=== PATIENT | female | born 1970 | race Caucasian/White ===

== ENCOUNTER 2017-02-17 14:29 | Emergency (ER) | payer OTHER ==
[2017-02-17] MEDS ORDERED: ACETAMINOPHEN WITH CODEINE #3 TABLET PO ONE ×2 (14:47→21:36)
--- NOTE | 2017-02-17 14:48 | ER Document Report ---
ED Medical Screen (RME) - General Stated Complaint: ABDOMINAL PAIN Mode of Arrival: Ambulatory Information source: Patient Notes: Patient presents emergency department with left sided abdominal pain. Reports history of Crohn's, believes this is a flareup that started Saturday. Reports diarrhea, taking zofran. Not taking antibiotics at this time. Visiting from [place]. I have greeted and performed a rapid initial assessment of this patient. A comprehensive ED assessment and evaluation of the patient, analysis of test results and completion of the medical decision making process will be conducted by additional ED providers.. Physical Exam - Vital signs Vitals: Temp Pulse Resp BP Pulse Ox 99.0 F 126 H 20 127/86 H 99 02/17/17 14:42 02/17/17 14:42 02/17/17 14:42 02/17/17 14:42 02/17/17 14:42 Course - Vital Signs Vital signs: Temp Pulse Resp BP Pulse Ox 99.0 F 126 H 20 127/86 H 99 02/17/17 14:42 02/17/17 14:42 02/17/17 14:42 02/17/17 14:42 02/17/17 14:42
[2017-02-17 15:23] LABS: HEMATOCRIT 43.4 % (36.0-47.0); HEMOGLOBIN 14.8 g/dL (12.0-15.5); MEAN CORPUSCULAR HEMOGLOBIN 33.5 pg (27.0-33.4); MEAN CORPUSCULAR VOLUME 99 fl (80-97); RED BLOOD COUNT 4.41 10^6/uL (3.72-5.28); RED CELL DISTRIBUTION WIDTH 12.7 % (11.5-14.0); WHITE BLOOD COUNT 15.6 10^3/uL (4.0-10.5)
[2017-02-17 15:32] LABS: APPEARANCE,URINE CLEAR; BILIRUBIN,URINE NEGATIVE (NEGATIVE); GLUCOSE, URINE NEGATIVE (NEGATIVE); KETONES,URINE NEGATIVE (NEGATIVE); LEUKOCYTE ESTERASE,URINE NEGATIVE (NEGATIVE); NITRITE,URINE NEGATIVE (NEGATIVE); PROTEIN,URINE NEGATIVE (NEGATIVE); URINE SPECIFIC GRAVITY 1.009; UROBILINOGEN,URINE NEGATIVE mg/dL (<2.0)
[2017-02-17 15:37] LABS: ALANINE AMINOTRANSFERASE 31 U/L (9-52); ALKALINE PHOSPHATASE 75 U/L (38-126); ANION GAP 16 (5-19); ASPARTATE AMINO TRANSFERASE 29 U/L (14-36); BILIRUBIN,DIRECT 0.4 mg/dL (0.0-0.4); BILIRUBIN,TOTAL 0.6 mg/dL (0.2-1.3); BLOOD UREA NITROGEN 18 mg/dL (7-20); CALCIUM 10.1 mg/dL (8.4-10.2); CARBON DIOXIDE 22 mmol/L (22-30); CHLORIDE 103 mmol/L (98-107); CREATININE RESULT 0.88 mg/dL (0.52-1.25); GLUCOSE 106 mg/dL (75-110); SODIUM 140.5 mmol/L (137-145); TOTAL PROTEIN 7.9 g/dL (6.3-8.2)
[2017-02-17 15:45] LABS: BASOPHILS % (MANUAL) 0 % (0-2); EOSINOPHILS % (MANUAL) 1 % (0-6); LYMPHOCYTES % (MANUAL) 2 % (13-45); TOTAL CELLS COUNTED 100
[2017-02-17 15:46] LABS: RBC MORPHOLOGY COMMENT NORMO-CYTIC/CHROMIC
[2017-02-17] MEDS ORDERED: NORMAL SALINE 1000 ML 1,000 ML IV ONE ×2 (17:31→17:49)
[2017-02-17] MEDS ORDERED: MORPHINE SULFATE 10 MG/ML INJ IV ONE (17:31)
--- NOTE | 2017-02-17 17:33 | ER Document Report ---
ED GI/ - General Mode of Arrival: Ambulatory Information source: Patient TRAVEL OUTSIDE OF THE [place] IN LAST 30 DAYS: No - HPI Patient complains to provider of: Abdominal pain, Diarrhea. No: Dysuria, , Vomiting Onset: Other - 3 days Timing/Duration: Worse Quality of pain: Achy, Sharp Pain Level: 5 Location: Other - Generalized abdomen Vaginal bleeding (Compared to normal period): None Associated symptoms: Diarrhea, Loss of appetite, Nausea. denies: Blood in stool , Constipation, Dysuria, Urinary hesitancy, Urinary frequency, Urinary retention , Urinary urgency, Vaginal discharge, Vomiting Exacerbated by: Denies Relieved by: Denies Similar symptoms previously: Yes - Crohn's flare up Recently seen / treated by doctor: No <CARLITO HERNÁNDEZ - Last Filed: 02/17/17 19:27> <JOHN WHARTON - Last Filed: 02/18/17 02:23> - General Chief Complaint: Abdominal Pain Stated Complaint: ABDOMINAL PAIN Notes: Patient reports one-week history of low back pain with a three-day history of generalized abdominal tenderness. Patient does report nausea as well as diarrhea. Patient states she's had diarrhea 7 episodes today. Patient denies any blood in her stool. Patient denies any fever. Patient does have a history of Crohn's and suspects a flareup today. Patient is here visiting from out of state and plans to travel back home tomorrow. (CARLITO HERNÁNDEZ) - Related Data Allergies/Adverse Reactions: acetaminophen [From Lortab] Allergy (Verified 02/17/17 14:48) erythromycin base Allergy (Verified 02/17/17 14:48) hydrocodone [From Lortab] Allergy (Verified 02/17/17 14:48) levofloxacin [From Levaquin] Allergy (Verified 02/17/17 14:48) oxycodone [From Percocet] Allergy (Verified 02/17/17 14:48) Past Medical History - General Information source: Patient Last Menstrual Period: hysterectomy - Social History Smoking Status: Current Every Day Smoker Chew tobacco use (# tins/day): No Frequency of alcohol use: None Drug Abuse: None Lives with: Family Family History: Reviewed & Not Pertinent Patient has suicidal ideation: No Patient has homicidal ideation: No Renal/ Medical History: Denies: Hx Peritoneal Dialysis GI Medical History: Reports: Hx Crohn's Disease Psychiatric Medical History: Reports: Hx Depression Past Surgical History: Reports: Hx Cholecystectomy, Hx Gynecologic Surgery, Hx Hysterectomy, Hx Orthopedic Surgery, Hx Tonsillectomy <CARLITO HERNÁNDEZ - Last Filed: 02/17/17 19:27> Review of Systems - Review of Systems Constitutional: No symptoms reported. denies: Fever, Recent illness EENT: No symptoms reported Cardiovascular: No symptoms reported. denies: Chest pain Respiratory: No symptoms reported. denies: Cough, Short of breath Gastrointestinal: Abdominal pain, Diarrhea, Nausea, Poor appetite. denies: Vomiting, Blood streaked bowels Genitourinary: No symptoms reported. denies: Dysuria, Flank pain Female Genitourinary: No symptoms reported Musculoskeletal: Back pain Skin: No symptoms reported Hematologic/Lymphatic: No symptoms reported Neurological/Psychological: No symptoms reported <CARLITO HERNÁNDEZ - Last Filed: 02/17/17 19:27> Physical Exam - General General appearance: Appears well, Alert In distress: Mild - HEENT Head: Normocephalic, Atraumatic Eyes: Normal Conjunctiva: Normal Nasal: Normal Mouth/Lips: Normal Mucous membranes: Dry Pharynx: Normal Neck: Normal, Supple. No: Lymphadenopathy - Respiratory Respiratory status: No respiratory distress Chest status: Nontender Breath sounds: Normal. No: Rales, Rhonchi, Stridor, Wheezing Chest palpation: Normal - Cardiovascular Rhythm: Tachycardia Heart sounds: S1 appreciated, S2 appreciated Murmur: No - Abdominal Inspection: Normal Distension: No distension Bowel sounds: Normal Tenderness: Tender - Diffusely tender, Guarding Organomegaly: No organomegaly - Back Back: Normal, Nontender. No: CVA tenderness, Vertebra tenderness - Extremities General upper extremity: Normal inspection, Normal strength General lower extremity: Normal inspection, Normal strength - Neurological Neuro grossly intact: Yes Cognition: Normal Sonam Coma Scale Eye Opening: Spontaneous [place] Coma Scale Verbal: Oriented Sonam Coma Scale Motor: Obeys Commands [place] Coma Scale Total: 15 - Psychological Associated symptoms: Normal affect, Normal mood - Skin Skin Temperature: Warm Skin Moisture: Dry Skin Color: Normal <CARLITO HERNÁNDEZ - Last Filed: 02/17/17 19:27> Course - Laboratory Result Diagrams: 02/17/17 15:00 02/17/17 15:00 <CARLITO HERNÁNDEZ - Last Filed: 02/17/17 19:27> - Laboratory Result Diagrams: 02/17/17 15:00 02/17/17 15:00 - Diagnostic Test Radiology reviewed: Image reviewed, Reports reviewed - EKG Interpretation by Me EKG shows normal: Sinus rhythm, Rudolph, Intervals, QRS Complexes, ST-T Waves Rate: Normal, Tachycardia When compared to previous EKG there are: Previous EKG unavailable <JOHN WHARTON - Last Filed: 02/18/17 02:23> - Re-evaluation Re-evalutation: 02/17/17 17:[address] Benedict regarding patient presentation. Recommends CT imaging as well as additional liter of IV fluids. 02/17/17 19:27 Bedside report and handoff given to John Wharton STOCK HOLDER (CARLITO HERNÁNDEZ) 02/17/17 21:14 Patient hemodynamically stable, in no distress, afebrile. CT scan unremarkable. Heart rate decreased to 102 bpm after 2 L normal saline bolus. Patient states this is her baseline. Patient also states pain has resolved after medication and IV fluids and is tolerating oral fluids without difficulty or vomiting. 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 Patient states feels much better and would like to go home. Reports has had multiple similar episodes in the past of her Crohn' s flareups and is usually not treated with antibiotics or steroids. States usually stays on a bland diet for the following 2-3 days and takes Tylenol #3 if needed for pain. Discussed at length home care and strict ED return precautions with patient and family member. Findings and plan discussed with ED physician Dr. Benedict who concurs with discharge plan. (JOHN WHARTON) - Vital Signs Vital signs: Temp Pulse Resp BP Pulse Ox 98.4 F 104 H 16 118/73 97 02/17/17 21:42 02/17/17 21:42 02/17/17 21:42 02/17/17 21:42 02/17/17 21:42 - Laboratory Laboratory results interpreted by me: 02/17/17 02/17/17 15:00 15:00 WBC 15.6 H MCV 99 H MCH 33.5 H Seg Neuts % (Manual) 93 H Lymphocytes % (Manual) 2 L Abs Neuts (Manual) 14.5 H Abs Lymphs (Manual) 0.3 L Urine Blood SMALL H Discharge <BETTYCARLITO - Last Filed: 02/17/17 19:27> <SHAYYJOHN - Last Filed: 02/18/17 02:23> - Discharge Clinical Impression: Abdominal pain Qualifiers: Abdominal location: lower abdomen, unspecified Qualified Code(s): R10.30 - Lower abdominal pain, unspecified Condition: Stable Disposition: HOME, SELF-CARE Instructions: Abdominal Pain ([facility]), Observation for Appendicitis ([facility]), Toradol Injection ([facility]), Oral Narcotic Medication ([facility]) Additional Instructions: Drink plenty of fluids. Avoid dairy, spicy, fatty, salty, or processed foods. Eat a diet high in fiber with plenty of whole foods. Keep your appointment and follow-up with your primary care provider and buckshot swage operator this week. Return to the Emergency Department for any worsening symptoms or concerns. Prescriptions: Acetaminophen with Codeine [Tylenol #3 Tablet] 1 tab PO Q6HP PRN #10 tablet PRN Reason:
[2017-02-17 18:44] LABS: VENOUS BLOOD BASE EXCESS -2.9 mmol/L; VENOUS BLOOD HCO3 21.9 mmol/L (20-32); VENOUS BLOOD PCO2 38.5 mmHg (35-63); VENOUS BLOOD PH 7.37 (7.30-7.42)
[2017-02-17 19:26] LABS: PROTHROMBIN TIME 12.3 SEC (11.4-15.4)
[2017-02-17] MEDS ORDERED: METOCLOPRAMIDE HCL INJ/PF 10 MG/2 ML SDV IV ONE (19:26)
[2017-02-17] MEDS ORDERED: DIPHENHYDRAMINE HCL 50 MG/ML VIAL IV ONE (19:26)
[2017-02-17] MEDS ORDERED: KETOROLAC TROMETHAMINE INJ/PF 30 MG/1 ML SDV IV ONE (19:27)
--- NOTE | 2017-02-17 20:02 | EKG REPORT ---
SEVERITY:- OTHERWISE NORMAL ECG - SINUS TACHYCARDIA : Confirmed by: Varghese Pan MD 17-Feb-2017 20:01:59
[2017-02-17 21:44] VITALS: BP 118/73
== END 2017-02-17 21:42 | disposition home or self-care (01) ==
LOC: ER 14:29
DX: K50.90 Crohn's disease, unspecified, without complications (principal); R10.84 Generalized abdominal pain; R19.7 Diarrhea, unspecified; R63.0 Anorexia; R11.0 Nausea; M54.9 Dorsalgia, unspecified; F17.200 Nicotine dependence, unspecified, uncomplicated; Z88.5 Allergy status to narcotic agent; Z88.1 Allergy status to other antibiotic agents; Z90.49 Acquired absence of other specified parts of digestive tract; Z90.710 Acquired absence of both cervix and uterus
CPT/HCPCS: 93005; 99284; 96374; 96375; 36415; 87040; 87086; 83690; 85025; 85610; 80053; 81001; 82803; 83605; 74177; 93010; J1200; J1885; J2765; J2270